=== PATIENT | female | born 1980 | race Caucasian/White ===

== ENCOUNTER 2022-08-02 13:00 | Outpatient (CLI) | payer BC, SELFPAY ==
--- OUTSIDE RECORDS SUMMARY | 2022-08-02 13:03 | XMS_ITS ---
:1980 Author Care Team Providers Name Role Phone Jolie Chavez Primary Care Provider Unavailable Allergies None recorded. Medications Name Status Start Date Stop Date ? ? bimatoprost 0.03 % drops with applicator, eyelash base Active ? Not available dutasteride 0.5 mg capsule Active ? Not a vailable TAKE ONE CAPSULE BY MOUTH EVERY DAY finasteride 5 mg tablet Active ? Not avai lable valacyclovir 1 gram tablet Completed ? 07/15 Problems None recorded. Procedures None recorded. Results Lab Results None recorded. Past Encounters 04/21/2021 Cosmetic Surgery; Sebaceous Hyperplasia Jolie Chavez MD: [address], [place] [address], Ph. Social History Tobacco Smoking Status Vaccine List None recorded. Plan of Care Reminders Provider Appointments None recorded. ? ? Lab None recorded. ? ? Referral None recorded. ? ? Procedures None recorded. ? ? Surgeries None recorded. ? ? Imaging None recorded. ? ? Vitals None recorded.
[2022-08-02 22:03] LABS: Albumin* 4.8 g/dL (3.3-5.0); Chloride* 100 mmol/L (96-114); Potassium* 4.1 mmol/L (3.6-5.1); Sodium* 138 mmol/L (135-149)
[2022-08-02 22:05] LABS: Bilirubin Total* 1.2 mg/dL (0.1-1.5); Carbon Dioxide* 27 mmol/L (20-32); Cholesterol* 157 mg/dL (90-199); Creatinine* 0.7 mg/dL (0.5-1.5); Estimated Glomerular Filt Rate 111 ml/min; Total Protein* 7.5 g/dL (6.0-8.3)
[2022-08-02 22:06] LABS: Alanine Aminotransferase* 40 U/L (4-35); Alkaline Phosphatase* 77 U/L (40-150); Aspartate Amino Transferase* 31 U/L (12-35); Blood Urea Nitrogen* 15 mg/dL (5-24); Calcium* 9.2 mg/dL (8.4-10.6); Glucose* 88 mg/dL (60-115); HDL Cholesterol* 52 mg/dL (>=50); LDL Cholesterol Calculated 86 mg/dL (<100); Triglycerides* 93 mg/dL (40-149)
[2022-08-02 22:36] LABS: TSH With Reflex to FT4* 0.865 uIU/mL (0.270-4.200)
[2022-08-02 22:54] LABS: Hepatitis C Virus Antibody* Negative (Negative)
== END 2022-08-02 13:01 | disposition home or self-care (01) ==
PROVIDERS: PCP Family Medicine; Visit Provider Family Medicine
DX: Z01.419 Encounter for gynecological examination (general) (routine) without abnormal findings (principal); R79.89 Other specified abnormal findings of blood chemistry; Z13.6 Encounter for screening for cardiovascular disorders; Z11.59 Encounter for screening for other viral diseases
CPT/HCPCS: 80053; 80061; 84443; 86803

== ENCOUNTER 2022-09-27 08:27 | Outpatient (CLI) | payer BC, SELFPAY ==
--- NOTE | 2022-09-27 08:45 | CRLHL7_ITS ---
For Patients: As a result of the Cures Act, medical imaging exams and procedure reports are released immediately into your electronic medical record. You may view this report before your referring provider. If you have questions, please contact your health care provider. BILATERAL DIGITAL SCREENING MAMMOGRAM WITH COMPUTER-AIDED DETECTION AND TOMOSYNTHESIS 09/27/2022 CLINICAL HISTORY: Routine screening exam. COMPARISON: None. TECHNIQUE: Digital mammogram in CC and MLO projections including computer-aided detection (CAD) and tomosynthesis. BREAST COMPOSITION: Heterogeneously dense. FINDINGS: RIGHT Breast: No suspicious findings. LEFT Breast: Focal asymmetric density retroareolar plane 6 cm from the nipple. IMPRESSION: LEFT breast asymmetry/mass. RECOMMENDATIONS: Additional mammographic views of the LEFT breast including 3D spot-compression CC/MLO. LEFT breast ultrasound may also be required. A member of the radiology staff will be contacting the patient to arrange for this additional study. BI-RADS Category 0: Incomplete: Need Additional Imaging Evaluation and/or Prior Mammograms for Comparison. Dictated by Angelito Peters MD @ 09/27/2022 10:48:25 AM GRACIE/helen DW/Dictated by: Angelito Peters MD @ 09/27/2022 10:48:00 AM (Electronically Signed)
== END 2022-09-27 08:28 | disposition home or self-care (01) ==
LOC: MAMMO 08:30
PROVIDERS: PCP Family Medicine; Visit Provider Family Medicine
DX: Z12.31 Encounter for screening mammogram for malignant neoplasm of breast (principal); N63.20 Unspecified lump in the left breast, unspecified quadrant
CPT/HCPCS: 77063; 77067

== ENCOUNTER 2022-10-04 10:35 | Outpatient (CLI) | payer BC, SELFPAY ==
--- NOTE | 2022-10-04 10:45 | CRLHL7_ITS ---
For Patients: As a result of the Cures Act, medical imaging exams and procedure reports are released immediately into your electronic medical record. You may view this report before your referring provider. If you have questions, please contact your health care provider. DIGITAL DIAGNOSTIC LEFT MAMMOGRAM USING TOMOSYNTHESIS AND COMPUTER-AIDED DETECTION LEFT BREAST ULTRASOUND CLINICAL HISTORY: LEFT breast mass/asymmetry. COMPARISON: 09/27/2022. TECHNIQUE: Digital LEFT mammogram in two projections. Tomosynthesis and CAD utilized. Real-time ultrasound imaging of LEFT breast with imaging documentation. BREAST COMPOSITION: There are areas of scattered fibroglandular density. FINDINGS: 3D spot compression CC/MLO breast mammogram images submitted. Persistent nodular density in the retroareolar plane without architectural distortion. Targeted LEFT breast ultrasound performed. At 5 o`clock 5 cm from the nipple there is a simple anechoic cyst measuring 1.5 x 0.8 x 1.3 cm. No evidence of malignancy. IMPRESSION: Simple cyst LEFT breast 5 o`clock 5 cm from the nipple measuring 1.5 cm. No evidence of malignancy. RECOMMENDATIONS: Annual BILATERAL screening mammography. Results and recommendations discussed with the patient. BI-RADS Category 2: Benign A lay language report of this examination will be provided to the patient. Dictated by: Angelito Peters MD @10/04/2022 11:47:15 AM /Dictated by: Angelito Peters MD @ 10/04/2022 11:47:00 AM (Electronically Signed)
--- NOTE | 2022-10-04 11:15 | CRLHL7_ITS ---
For Patients: As a result of the Century Cures Act, medical imaging exams and procedure reports are released immediately into your electronic medical record. You may view this report before your referring provider. If you have questions, please contact your health care provider. CLINICAL HISTORY: LEFT breast mass/asymmetry. COMPARISON: 09/27/2022 TECHNIQUE: Digital LEFT mammogram in 2 projections. Real-time ultrasound imaging of LEFT breast with imaging documentation. BREAST COMPOSITION: Scattered fibroglandular densities. FINDINGS: 3D spot compression CC/MLO breast mammogram images submitted. Persistent nodular density in the retroareolar plane without architectural distortion. Targeted left breast ultrasound performed. At 5 o`clock 5 cm from the nipple there is a simple anechoic cyst measuring 1.5 x 0.8 x 1.3 cm. No evidence of malignancy. IMPRESSION: Simple cyst left breast 5 o`clock 5 cm from the nipple measuring 1.5 cm. No evidence of malignancy. RECOMMENDATIONS: Annual bilateral screening mammography. BI-RADS: 2. Benign findings. Results and recommendations discussed with the patient. Dictated by Angelito Peters MD @ 10/04/2022 11:47:14 AM (Electronically Signed)
== END 2022-10-04 10:36 | disposition home or self-care (01) ==
LOC: MAMMO 10:36
PROVIDERS: PCP Family Medicine; Visit Provider Family Medicine
DX: N63.20 Unspecified lump in the left breast, unspecified quadrant (principal); R92.8 Other abnormal and inconclusive findings on diagnostic imaging of breast
CPT/HCPCS: 76642; 77065; G0279

== ENCOUNTER 2023-12-16 08:37 | Outpatient (CLI) | payer BC, SELFPAY ==
--- NOTE | 2023-12-16 08:45 | MM_ITS ---
Patient: SONDRA APONTE Facility:?[facility] Patient ID:?[id number] Site Patient ID:?[id number] Site :?1980 Study:?XRay-Breast Bilateral 3D W/CAD-12/16/2023 9:12:01 AM Ordering Physician:?Antonette Pickard Final Report: BILATERAL SCREENING MAMMOGRAM WITH COMPUTER-AIDED DETECTION AND TOMOSYNTHESIS TECHNIQUE: CC and MLO views were obtained. These mammographic images have been obtained using full-field digital technique. These mammographic images were interpreted with the benefit of computer-aided detection. Breast Tomosynthesis was used in this interpretation. COMPARISON FILM: 09/27/22, 10/04/22(LT). FINDINGS: There are scattered areas of fibroglandular density. IMPRESSION: There is no radiographic evidence for malignancy. ASSESSMENT: BI-RADS Category 1: Negative RECOMMENDATION: Routine screening mammogram in 1 year. A lay language report of this examination will be provided to the patient. Angelito Peters M.D. Diagnostic Radiologist [email or web address] DSM/sp R& Transcribed: 1:35 p.m. SP/Dictated by: Angelito Peters MD @ 12/16/2023 9:45:00 AM Signed by:?Angelito Peters MD @12/16/2023 1:45:46 PM (Electronic Signature)
== END 2023-12-16 08:38 | disposition home or self-care (01) ==
PROVIDERS: PCP Family Medicine; Visit Provider Family Medicine
DX: Z12.31 Encounter for screening mammogram for malignant neoplasm of breast (principal)
CPT/HCPCS: 77063; 77067

== ENCOUNTER 2024-05-18 09:37 | Outpatient (CLI) | payer BC, SELFPAY ==
--- OUTSIDE RECORDS SUMMARY | 2024-05-18 09:39 | XMS_ITS | Data Portability ---
Author Organization [place] - [facility], Main Office Address 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 Treatments: Discussed etiology again discussed risk benefits pain, discomfort, small chance of scarring chance recurrence. Cosmetic nature of treatment. Anesthetized 1% lidocaine with epinephrine. Lightly hyfrecated more than 15 lesions today on the face. Setting of 1.11-2 passes maximum. Wound care instructions given. She has to chickenpox scars on the forehead that we did substation to today. Discussed bruising. Used a 30-gauge needle. Discussed potential retreatment and potential resurfacing. Inclusive of the cost. $100 charge. Follow-up as needed [email or web address] Not available 07/16/2020 00:30:30 04/21/2021 04/21/2021 1. Sebaceous gland hyperplasia. Here for cosmetic treatment. Discussed risk benefits pain discomfort downtime scarring. Anesthetized 15 with 1% lidocaine with epinephrine light hyfrecation at a setting of 1-2 passes with gentle gauze debridement in between. Wound care instructions given. $100 charge. Follow-up as needed [email or web address] Not available 04/21/2021 09:35:49 Plan of Treatment Reminders Order Date Submit Date Provider Last Modified By Organization Details Last Modified Time Details Appointments None recorded. Lab None recorded. Referral None recorded. Procedures None recorded. Surgeries None recorded. Imaging None recorded. Medication Orders Latisse 0.03 % eyelash drops [address] [id number] [employer], [address] [place], [address], 09:13:11 Patient TargetsNo targets recorded. Patient InstructionsNo instructions recorded. Reason for Referral None Reported. Medical Equipment None Reported. Medications Name Sig Start Date Stop Date Status Note LastModified by Organization Details LastModified Time valacyclovi r 1 gram tablet 07/15 completed Not Available Not Available Not Available finasteride 5 mg tablet 07/15 completed Not Available Not Available Not Available dutasteride 0.5 mg capsule TAKE ONE CAPSULE BY MOUTH EVERY DAY active Not Available Not Available No t Available bimatoprost 0.03 % drops with applicator, eyelash base APPLY 1 DROP TO APPLICATO R AND APPLY TO UPPER EYELID, ALONG EYELASHES , BY TOPICAL ROUTE ONCE DAILY AT NIGHTTIME active Not Available Not Available No t Available Vitals None Recorded Social History None recorded. Functional Status None recorded. Mental Status None recorded. Family History Nothing Reported. Medical History No medical history recorded. Gynecological HistoryNo gynecological history recorded. Obstetrics History GPAL:G 0 P 0 0 0 0 Past Encounters Encounter ID Performer Location Encounter Start Date Encounter Closed Date Diagnosis/Indication Diagnosis SNOMED-CT Code [id number] Jolie Chavez MD Main Office [address] [address] 07/15/2020 13:13:02 07/16/2020 00:42:22 Sebaceous hyperplasia [id number] Jolie Chavez MD Main Office [address] [address] 04/21/2021 08:48:19 04/21/2021 23:11:38 Cosmetic surgery [id number] Sebaceous hyperplasia 23 [id number] Health Concerns Section Related Observation LastModified by Organization Detai ls LastModified Time None Recorded Concern Status LastModified by Organization Details LastModified Time None Recorded Advance Directives Directive None Recorded Payers Encounter Date Sequence Insurance Name Policy Number Policy Chacko Covered Member ID Chacko Member ID Guarantor Name 04/21/2021 *SELF PAY* Milagro Santizo Notes Date Note Type Note Provider Name and Address Organization Details Recorded Time 07/15/2020 text/html HPI Notes: Known to me from the [facility] presents today for sebaceous gland hyperplasia hyfrecation. Understands the cost the risk benefits. She does have a few aguilar angiomas will be identified she is willing to treat. Social history with children. Modest sun exposure. Does not smoke. Family history noncontributory. Past medical history no history of Bruce-Danlos. Jolie Chavez MD [address],[facility], [address], [facility] 07/16/2020 00:42:18 04/21/2021 text/html HPI Notes: 41-year-old returns for treatment of more sebaceous gland hyperplasia. She is happy with her previous results and no real side effects. Past medical history family history and social history unchanged in the interim Jolie Chavez MD [address],[facility], [address], [facility] 04/21/2021 23:11:21 OBGyn Episode No OBEpisode recorded.
== END 2024-05-18 09:38 | disposition home or self-care (01) ==
PROVIDERS: PCP Family Medicine; Visit Provider Family Medicine
DX: Z00.00 Encounter for general adult medical examination without abnormal findings (principal); I10 Essential (primary) hypertension; R73.03 Prediabetes; D64.9 Anemia, unspecified; E07.9 Disorder of thyroid, unspecified; Z11.59 Encounter for screening for other viral diseases; Z13.6 Encounter for screening for cardiovascular disorders
CPT/HCPCS: 80053; 80061; 82043; 82570; 84443; 86803

== ENCOUNTER 2025-05-20 13:31 | Outpatient (CLI) | payer BC, SELFPAY ==
--- NOTE | 2025-05-20 13:40 | CRLHL7_ITS ---
For Patients: As a result of the Century Cures Act, medical imaging exams and procedure reports are released immediately into your electronic medical record. You may view this report before your referring provider. If you have questions, please contact your health care provider. INDICATION: BILATERAL SCREENING MAMMOGRAM, ASYMPTOMATIC 45 Y/O FEMALE COMPARISON: 12/16/2023, 10/04/2022, 09/27/2022 TECHNIQUE: Digital mammogram in CC and MLO projections including computer-aided detection (CAD) and tomosynthesis. BREAST COMPOSITION: There are scattered areas of fibroglandular density. FINDINGS: No suspicious findings. ASSESSMENT: BI-RADS 1 Negative RECOMMENDATION: Annual screening mammogram. A lay language report of this examination will be provided to the patient. Dictated by: Angelito Peters MD @ 05/24/2025 10:36:52 (Electronically Signed)
== END 2025-05-20 13:32 | disposition home or self-care (01) ==
LOC: MAMMO 13:32
PROVIDERS: PCP Family Medicine; Visit Provider Family Medicine
DX: Z12.31 Encounter for screening mammogram for malignant neoplasm of breast (principal)
CPT/HCPCS: 77063; 77067

== ENCOUNTER 2025-06-29 12:02 | Outpatient (CLI) | payer BC, SELFPAY | END 2025-06-29 12:03 | disposition home or self-care (01) | LOC: FRMREF 12:02 | PROVIDERS: PCP Family Medicine; Visit Provider Family Medicine | DX: Z01.818 Encounter for other preprocedural examination (principal) | CPT/HCPCS: 80053; 80061; 82043; 82570; 84443 ==

== ENCOUNTER 2025-07-04 14:27 | Outpatient (CLI) | payer BC, SELFPAY ==
--- NOTE | 2025-07-04 14:45 | CRLHL7_ITS ---
For Patients: As a result of the Cures Act, medical imaging exams and procedure reports are released immediately into your electronic medical record. You may view this report before your referring provider. If you have questions, please contact your health care provider. Indication: left parotitis Technique: Grayscale and color Doppler ultrasound of the left neck soft tissues performed. Comparison: None Findings: No fluid collection or adenopathy. No abscess. No abnormal vascularity. Impression: No abscess. Dictated by Angelito Peters MD @ 07/04/2025 8:38:08 PM (Electronically Signed)
== END 2025-07-04 14:28 | disposition home or self-care (01) ==
LOC: US 14:28
PROVIDERS: PCP Family Medicine; Visit Provider Family Medicine
DX: K11.20 Sialoadenitis, unspecified (principal)
CPT/HCPCS: 76536

== ENCOUNTER 2025-07-18 12:45 | Outpatient (CLI) | payer BC, SELFPAY ==
--- NOTE | 2025-07-18 13:00 | CRLHL7_ITS ---
For Patients: As a result of the Century Cures Act, medical imaging exams and procedure reports are released immediately into your electronic medical record. You may view this report before your referring provider. If you have questions, please contact your health care provider. Indication: Localized swelling. Technique: Noncontrast CT of the temporal bones with multiplanar reconstruction utilizing bone and soft tissue algorithms. Comparison: Correlated with ultrasound of the neck dated 07/04/2025. Findings: Right: Patent external auditory canal. Opacified mastoid tip. Intact ossicular chain. The cochlea, vestibule, and semicircular canals are within normal limits. The otic capsule is normal in density. The internal auditory canal and canal for the facial nerve are within normal limits. Left: Patent external auditory canal. Small mastoid effusion. Clear middle ear cavity. Intact ossicular chain. The cochlea, vestibule, and semicircular canals are within normal limits. The otic capsule is normal in density. The internal auditory canal and canal for the facial nerve are unremarkable. Impression: 1. Small left mastoid effusion. 2. Opacified right mastoid tip, likely chronic. 3. Otherwise unremarkable noncontrast CT of the temporal bones. Please note that all CT scans at this facility use dose modulation, iterative reconstruction, and/or weight-based dosing when appropriate to reduce radiation dose to as low as reasonably achievable. Dictated by Segun Conrad MD @ 07/19/2025 11:07:59 AM (Electronically Signed)
== END 2025-07-18 12:46 | disposition home or self-care (01) ==
LOC: CT 12:45
PROVIDERS: PCP Family Medicine; Visit Provider Physician Assistant
DX: R22.0 Localized swelling, mass and lump, head (principal); H65.92 Unspecified nonsuppurative otitis media, left ear; M26.609 Unspecified temporomandibular joint disorder, unspecified side
CPT/HCPCS: 70480